=== PATIENT | female | born 1980 | race African-American/Black ===

== ENCOUNTER 2018-11-12 12:07 | Emergency (ER) | payer OTHER ==
--- NOTE | 2018-11-12 12:31 | PDOC ---
Rapid Medical Evaluation Medical Evaluation: Allergies Allergy/AdvReac Type Severity Reaction Status Date / Time No Known Drug Allergies Allergy Verified 01/25/14 08:35 I have performed a brief in-person evaluation of this patient. The patient presents with a chief complaint of: Hit R 4th toe against dresser; went to outside urgent care and told ?hairline fracture; was told she would get callback re: Definite read but never heard back Pertinent physical exam findings: +TTP R 4th toe, no deformity I have ordered the following: Xray (patient refused pain meds) The patient will proceed to the ED for further evaluation. 11/12/18 12:29
[2018-11-12 12:32] VITALS: BP 104/65; PULSE 67; TEMP 98.4; BMI 25.4
--- NOTE | 2018-11-12 14:37 | PDOC ---
History of Present Illness - General Chief Complaint: Injury Stated Complaint: RT TOE INJURY Time Seen by Provider: 11/12/18 12:29 - History of Present Illness Initial Comments: 11/12/18 14:32 CHIEF COMPLAINT: toe pain HISTORY OF PRESENT ILLNESS: 38 yo F with no significant PMH presents to fast track with R 4th toe pain. Patient reports she accidentally stubbed her toe two days ago on her dresser and was seen at an urgent care that day. She was told she "maybe had a hairline fracture" but was waiting for them to call her with officialy results but never heard back. She states she went to "[employer] and to a concert last night" and the pain has gotten worse. No recent travel or sick contacts. PAST MEDICAL HISTORY: Denies past medical history FAMILY HISTORY: Denies SOCIAL HISTORYDenies tobacco, alcohol, illicit drug use. SURGICAL HISTORY: Denies ALLERGIES: No known drug allergies REVIEW OF SYSTEMS General/Constitutional: Denies fever or chills. Denies weakness, weight change. HEENT: Denies change in vision. Denies ear pain or discharge. Denies sore throat. Cardiovascular: Denies chest pain or shortness of breath. Respiratory: Denies cough, wheezing, or hemoptysis. Gastrointestinal: Denies nausea, vomiting, diarrhea or constipation. Denies rectal bleeding. Genitourinary: Denies dysuria, frequency, or change in urination. Musculoskeletal: R 4th toe pain. Denies joint or muscle swelling or pain. Denies neck or back pain. Skin and breasts: Denies rash or easy bruising. Neurologic: Denies headache, vertigo, loss of consciousness, or loss of sensation. PHYSICAL EXAM General Appearance: Well-appearing, appropriately dressed. No apparent distress , no intoxication. HEENT: EOMI, PERRLA, normal ENT inspection, normal voice, TMs normal, pharynx normal. No conjunctival pallor. No photophobia, scleral icterus. Neck: Supple. Trachea midline. No tenderness, rigidity, carotid bruit, stridor , lymphadenopathy, or thyromegaly. Respiratory/Chest: Lungs CTAB. No shortness of breath, chest tenderness, respiratory distress, accessory muscle use. No crackles, rales, rhonchi, stridor , wheezing, dullness Cardiovascular: RRR. S1, S2. No JVD, murmur, bradycardia, tachycardia. Vascular Pulses: Dorsalis-Pedis (R): 2+, Dorsalis-Pedis (L): 2+ Gastrointestinal/Abdominal: Normal bowel sounds. Abdomen soft, non-distended. No tenderness or rebound tenderness. No organomegaly, pulsatile mass, guarding , hernia, hepatomegaly, splenomegaly. Lymphatic: No adenopathy, tenderness. Musculoskeletal/Extremities: Tenderness to dorsal and plantar aspect of R 4th toe, no erythema, swelling, gross deformity. Pain with ambulation to R 4th toe. Normal inspection. FROM of all other extremities, normal capillary refill. Pelvis Stable. No CVA tenderness. No tenderness to other extremities, pedal edema, swelling, erythema or deformity. Integumentary: Appropriate color, dry, warm. No cyanosis, erythema, jaundice or rash Neurologic: field case manager II-XII intact. Fully oriented, alert. Appropriate mood/affect. Motor strength 5/5. No appreciable EOM palsy, facial droop or sensory deficit. Past History - Past Medical History Allergies/Adverse Reactions: Allergies Allergy/AdvReac Type Severity Reaction Status Date / Time No Known Drug Allergies Allergy Verified 11/12/18 12:32 Home Medications: Ambulatory Orders No Home Medications 03/05/12 Acetaminophen [Tylenol .Regular Strength -] 650 mg PO Q4H PRN #0 tablet Ibuprofen [Motrin -] 600 mg PO Q4H PRN #0 tablet 01/30/14 Ibuprofen [Motrin -] 600 mg PO TID PRN #21 tablet 11/12/18 Anemia: No Asthma: No Cancer: No Cardiac Disorders: No CVA: No COPD: No CHF: No Dementia: No Diabetes: No GI Disorders: No Disorders: No HTN: No Hypercholesterolemia: No Liver Disease: No Seizures: No Thyroid Disease: No - Surgical History Abdominal Surgery: No Appendectomy: No Cardiac Surgery: No Cholecystectomy: No Lung Surgery: No Neurologic Surgery: No Orthopedic Surgery: No - Immunization History Td Vaccination: No Immunization Up to Date: No - Suicide/Smoking/Psychosocial Hx Smoking Status: No Smoking History: Never smoked Have you smoked in the past 12 months: No Number of Cigarettes Smoked Daily: 0 Information on smoking cessation initiated: No Hx Alcohol Use: No Drug/Substance Use Hx: No Substance Use Type: None Hx Substance Use Treatment: No *Physical Exam - Vital Signs Last Vital Signs Temp Pulse Resp BP Pulse Ox 98.4 F 67 19 104/65 100 11/12/18 12:30 11/12/18 12:30 11/12/18 12:30 11/12/18 12:30 11/12/18 12:30 Medical Decision Making - Medical Decision Making 11/12/18 14:35 38 yo F with no significant PMH presents to fast track with R 4th toe pain. -xray of R foot suggestive of fracture to proximal R 4th phalanx 11/12/18 14:35 post op shoe applied, 4th and 3rd toe cosme taped. patient refuses pain medication including motrin *DC/Admit/Observation/Transfer Diagnosis at time of Disposition: Toe fracture, right Qualifiers: Encounter type: initial encounter Toe: lesser toe Fracture type: closed Phalanx : proximal Fracture alignment: nondisplaced Qualified Code(s): S92.514A - Nondisplaced fracture of proximal phalanx of right lesser toe(s), initial encounter for closed fracture - Discharge Dispostion Disposition: HOME Condition at time of disposition: Stable Decision to Admit order: No - Prescriptions Prescriptions: Ibuprofen [Motrin -] 600 mg PO TID PRN #21 tablet PRN Reason: Pain - Referrals - Patient Instructions Printed Discharge Instructions: DI for Toe Fracture - Post Discharge Activity
== END 2018-11-12 14:40 | disposition home or self-care (01) ==
LOC: JERFT 12:07
DX: S92.514A Nondisplaced fracture of proximal phalanx of right lesser toe(s), initial encounter for closed fracture (principal); W22.03XA Walked into furniture, initial encounter; Y93.01 Activity, walking, marching and hiking; Y92.032 Bedroom in apartment as the place of occurrence of the external cause; Y99.8 Other external cause status
CPT/HCPCS: 73660-TC-FY; 99281-25

== ENCOUNTER 2022-12-05 15:49 | Emergency (ER) | payer OTHER ==
[2022-12-05 16:16] VITALS: TEMP 98.2
[2022-12-05 17:40] LABS: BASO % 0.7 % (0-2.0); EOS % 0.8 % (0-4.5); HEMOGLOBIN 12.7 GM/dL (10.7-15.3); LYMPH % 38.8 % (8-40); MCH 26.3 pg (25.7-33.7); MCHC 32.6 g/dl (32.0-36.0); MEAN CELL VOLUME 80.9 fl (80-96); MEAN PLT VOLUME 8.2 fl (7.5-11.1); MONO % 7.8 % (3.8-10.2); NEUT % 51.9 % (42.8-82.8); PLATELET COUNT 292 10^3/uL (134-434); RBC 4.82 M/mm3 (3.60-5.2); RDW 16.1 % (11.6-15.6)
[2022-12-05 17:45] LABS: INR 1.11 (0.83-1.09); PROTHROMBIN TIME (PATIENT) 12.9 SEC (9.7-13.0)
[2022-12-05 17:48] LABS: ACTIVATED PTT 29.7 SECONDS (25.2-36.5)
[2022-12-05 17:50] LABS: ALBUMIN 3.9 g/dl (3.4-5.0); BLOOD UREA NITROGEN 8.1 mg/dL (7-18); CALCIUM 8.9 mg/dL (8.5-10.1)
[2022-12-05 17:53] LABS: CREATININE 0.8 mg/dL (0.55-1.3)
[2022-12-05 17:55] LABS: BILIRUBIN,TOTAL 0.4 mg/dL (0.2-1); TOT PROT 8.2 g/dl (6.4-8.2)
[2022-12-05 19:56] VITALS: BP 113/65; PULSE 60; RESP 16
== END 2022-12-05 19:40 | disposition home or self-care (01) ==
LOC: JER 15:49
DX: R06.02 Shortness of breath (principal); R07.89 Other chest pain; Z20.822 Contact with and (suspected) exposure to COVID-19
CPT/HCPCS: 0241U-QW; 36415; 71046-TC-FY; 80053; 84484; 84703; 85025; 85379; 85610; 85730; 93005; 93010; 99285-25